=== PATIENT | male | born 1970 ===

== ENCOUNTER 2024-10-27 06:45 | Day surgery (SDC) | payer OTHER ==
[2024-10-26 08:39] LABS: BASO % 0.5 % (0.1-1.2); EOS # 0.29 (0.04-0.54); EOS % 3.0 % (0.7-7.0); LYMPH # 1.72 (1.18-3.74); LYMPH % 18.0 % (19.3-53.1); MEAN PLATELET VOLUME 11.00 fl (9.4-12.4); MONO # 0.84 (0.24-0.82); MONO % 8.8 % (4.7-12.5); NEUT # 6.58 (1.56-6.13); NEUT % 69.2 % (34.0-71.1); RED CELL DISTRIBUTION WIDTH 13.4 % (11.6-14.4)
[2024-10-26 08:40] VITALS: BP 118/84
[2024-10-26 08:41] LABS: URINE APPEARANCE Clear; URINE BILIRRUBIN Negative (NEGATIVE); URINE BLOOD Negative; URINE COLOR Yellow; URINE GLUCOSE Negative (NEGATIVE); URINE KETONE Trace (NEGATIVE); URINE LEUKOCYTE Negative; URINE NITRATE Negative; URINE PROTEIN Negative (NEGATIVE); URINE UROBILINOGEN 0.2 E.U./dl
[2024-10-26 08:45] LABS: URINE EPITHELIAL CELLS 3.8 uL (0.0-38.8); URINE RBC 2.0 uL (0.0-20.8); URINE WBC 9.0 uL (0.0-23.2)
[2024-10-26 09:02] LABS: URINE BACTERIA 2.4 uL (0.0-1933); URINE CAST 0.58 uL (0.0-1.40)
[2024-10-26 09:05] LABS: INR 0.97
[2024-10-26 09:18] LABS: ALT/SGPT 30.0 U/L (12-78); AST/SGOT 11.0 U/L (15-37); BILIRUBIN TOTAL 0.66 mg/dL (0.3-1.2); BUN CREA RATIO 20.0 (7.0-25.0); CREATININE SERUM 1.03 mg/dL (0.70-1.30); GFR 74.7; GLOBULINA 3.5 G/DL (2.4-3.5); GLUCOSE FASTING 118.0 mg/dL (65-100); OSMOLALITY SERUM 282.0 MOSM/KG (275-295)
[~2024-10-27] VITALS: Ht 167.6 cm; Wt 108.9 kg
[~2024-10-27 06:45] MED LIST: ZESTORETIC 20-1 EACH PO
[2024-10-27] MEDS ORDERED: CEFAZOLIN SODIUM 1,000 MG VIAL IV ONE (14:00)
[2024-10-27] MEDS ORDERED: BUPIVACAINE HCL 30 ML VIAL IJ ONE (14:00)
[2024-10-27] MEDS ORDERED: SUGAMMADEX SODIUM 200 MG/2 ML VIAL IV ONE (15:15)
[2024-10-27] MEDS ORDERED: MORPHINE SULFATE 4 MG/ML VIAL IV ONE (16:45)
== END 2024-10-27 18:45 | disposition home or self-care (01) ==
LOC: CIR.AMB 06:45
PROVIDERS: ATTEND Orthopaedic Surgery Hand Surgery
DX: S52.532A Colles' fracture of left radius, initial encounter for closed fracture (principal); M24.532 Contracture, left wrist
CPT/HCPCS: 25609; 25280; L8699